=== PATIENT | female | born 1975 ===

== ENCOUNTER 2018-03-09 16:05 | Emergency (ER) | payer OTHER ==
[2018-03-09 16:27] VITALS: RESP 18; O2SAT 99
[2018-03-09 17:53] LABS: BASO % 0.5 % (0.0-2.0); EOS # 0.1 K/uL (0.0-0.7); EOS % 1.9 % (0.0-4.0); HEMOGLOBIN 11.4 g/dL (11.0-16.0); LYMPH # 1.9 K/uL (1.0-4.3); LYMPH % 24.9 % (20.0-40.0); MEAN CELL VOLUME 88.3 fL (81.0-99.0); MEAN CORPUSCULAR HEMOGLOBIN 31.5 pg (27.0-31.0); MEAN CORPUSCULAR HGB CONC 35.6 g/dL (33.0-37.0); MEAN PLATELET VOLUME 7.8 fL (7.2-11.7); MONO # 0.5 K/uL (0.0-0.8); MONO % 6.6 % (0.0-10.0); NEUT # 5.1 K/uL (1.8-7.0); NEUT % 66.1 % (50.0-75.0); RBC 3.62 Mil/uL (3.80-5.20); RED CELL DISTRIBUTION WIDTH 13.8 % (11.5-14.5); WHITE BLOOD COUNT 7.7 K/uL (4.8-10.8)
[2018-03-09 18:05] LABS: ALB/GLOB RATIO 1.3 (1.0-2.1); ALBUMIN 4.2 g/dL (3.5-5.0); ALT/SGPT 35 U/L (9-52); AST/SGOT 24 U/L (14-36); BLOOD UREA NITROGEN 12 mg/dL (7-17); CALCIUM 9.4 mg/dl (8.6-10.4); GFR AFRICAN-AMERICAN > 60; GFR NON-AFRICAN AMERICAN > 60; PROTHROMBIN TIME 11.2 SECONDS (9.7-12.2)
[2018-03-09 18:29] VITALS: BP 138/84; PULSE 74; TEMP 98.3
--- NOTE | 2018-03-09 19:34 | C.PDOC ---
History Of Present Illness 42yo female, comes to ER with complaints of 3 months of vaginal bleeding; she states she uses 10 pads per day. Patient denies any injury, trauma, fever, chills, lightheadedness, abdominal pain, or vomiting. She also denies any dysuria, hematuria or back pain. She has no other complaints. Time Seen by Provider: 03/09/18 17:00 Chief Complaint (Nursing): Female Genitourinary History Per: Patient History/Exam Limitations: no limitations Onset/Duration Of Symptoms: Persistent Current Symptoms Are (Timing): Still Present Abnormal Vaginal Bleeding: Yes Past Medical History Reviewed: Historical Data, Nursing Documentation, Vital Signs Vital Signs: Last Vital Signs Temp 98.3 F 03/09/18 18:28 Pulse 74 03/09/18 18:28 Resp 18 03/09/18 18:28 BP 138/84 03/09/18 18:28 Pulse Ox 99 03/09/18 19:53 - Medical History PMH: No Chronic Diseases Surgical History: No Surg Hx Family History: States: No Known Family Hx - Social History Hx Alcohol Use: No Hx Substance Use: No - Immunization History Hx Tetanus Toxoid Vaccination: No Hx Influenza Vaccination: No Hx Pneumococcal Vaccination: No Review Of Systems Except As Marked, All Systems Reviewed And Found Negative. Constitutional: Negative for: Fever, Chills Cardiovascular: Negative for: Chest Pain, Light Headedness Respiratory: Negative for: Shortness of Breath Gastrointestinal: Negative for: Vomiting, Abdominal Pain Genitourinary: Positive for: Vaginal Bleeding. Negative for: Dysuria, Frequency , Hematuria Musculoskeletal: Negative for: Back Pain Neurological: Negative for: Dizziness Physical Exam - Physical Exam Appears: Non-toxic, No Acute Distress Skin: Warm, Dry Head: Atraumatic, Normacephalic Eye(s): bilateral: Normal Inspection, PERRL, EOMI Oral Mucosa: Moist Neck: Normal ROM, Supple Cardiovascular: Rhythm Regular Respiratory: Normal Breath Sounds Gastrointestinal/Abdominal: Soft, No Tenderness, No Guarding, No Rebound Back: Normal Inspection Extremity: Normal ROM, No Deformity Neurological/Psych: Oriented x3 ED Course And Treatment - Laboratory Results Result Diagrams: 03/09/18 17:42 03/09/18 17:42 O2 Sat by Pulse Oximetry: 99 (RA) Pulse Ox Interpretation: Normal Medical Decision Making Medical Decision Making: Plan: -- Labs 1820 Labs reviewed, and are all within normal limits. Patient stable for discharge home and states she has a scheduled INSPECTION CLERK follow up next week. Disposition - Disposition Referrals: [facility] [Outside] [facility] [Outside] [facility] [Outside] Disposition: HOME/ ROUTINE Disposition Time: 18:10 Condition: GOOD Additional Instructions: JANET MICHELE, thank you for letting us take care of you today. The emergency medical care you received today was directed at your acute symptoms. If you were prescribed any medication, please fill it and take as directed. It may take several days for your symptoms to resolve. Return to the Emergency Department if your symptoms worsen, do not improve, or if you have any other problems. Please contact your doctor or call one of the physicians/clinics you have been referred to that are listed on the Patient Visit Information form that is included in your discharge packet. Bring any paperwork you were given at discharge with you along with any medications you are taking to your follow up visit. Our treatment cannot replace ongoing medical care by a primary care provider outside of the emergency department. Thank you for allowing the [facility] team to be part of your care today. Follow up with your INSPECTION CLERK doctor next week as scheduled for further management. Prescriptions: Methylergonovine [Methergine] 0.2 mg PO DAILY #5 tab Instructions: Heavy Periods (DC) Forms: [facility] (Sinhala) - Clinical Impression Clinical Impression: Heavy periods - Scribe Statement The provider has reviewed the documentation as recorded by the Sharon Rodriguez Provider Attestation: All medical record entries made by the Barbibjimmie were at my direction and personally dictated by me. I have reviewed the chart and agree that the record accurately reflects my personal performance of the history, physical exam, medical decision making, and the department course for this patient. I have also personally directed, reviewed, and agree with the discharge instructions and disposition.
== END 2018-03-09 18:29 | disposition home or self-care (01) ==
LOC: C.ER 16:05
DX: N92.0 Excessive and frequent menstruation with regular cycle (principal)